=== PATIENT | female | born 1960 | race Caucasian/White ===

== ENCOUNTER → 2017-10-04 | Outpatient (CLI) | payer BC ==
--- NOTE | 2017-10-04 15:44 | RAD ---
Renal ultrasound, 10/04/2017: History: Hematuria The right kidney measures 10.9 cm in length while the left kidney measures 12.0 cm. There is a mildly prominent extrarenal pelvis on the right. There is no evidence of hydronephrosis or a renal mass. Limited views of urinary bladder are unremarkable. The prevoiding volume was 344 cc. A post voiding view demonstrates approximately 10 cc of residual urine. IMPRESSION: No significant renal abnormality is detected.
== END | disposition home or self-care (01) ==
LOC: US 14:09
PROVIDERS: ATTEND Physician Assistant
DX: R31.29 Other microscopic hematuria (principal)
CPT/HCPCS: 76770

== ENCOUNTER 2019-04-25 14:14 | Emergency (ER) | payer BC ==
[~2019-04-25] VITALS: Ht 170.2 cm; Wt 54.4 kg
[2019-04-25 14:14] VITALS: BP 143/89
[2019-04-25] MEDS ORDERED: TRAM50TA PO (14:42)
[2019-04-25] MEDS ORDERED: SULF1TAB24 PO (14:42)
[2019-04-25] MEDS ORDERED: COLC0.6T34 PO (14:42)
--- NOTE | 2019-04-25 14:43 | PHYS DOC ---
Past History Past Medical History: CAD, High Cholesterol, Hypertension, Other Additional Past Medical Histor: lupus Past Surgical History: No Surgical History Smoking: Non-smoker Alcohol Use: Rarely Drug Use: None Adult General Chief Complaint Chief Complaint: KNEE INJURY HPI HPI Patient is a 58-year-old female presents complaining of right knee discomfort, similar to gout that she normally gets in her left knee. This is been present for about the past week. Over the past 2 days she's had some redness in her right foot along with swelling. A blister with yellowish fluid formed on the lateral aspect of her foot that popped. No purulent drainage. No systemic fever. Increased pain with palpation of both the knee and the foot. No trauma. No stepping on a nail. No nausea or vomiting. No new shortness of breath. Patient has recently been diagnosed with lupus and is undergoing an extensive workup at . She currently has an appointment in 2 days with her primary care team for additional lab testing and following on what going on with the lupus.[] Review of Systems Review of Systems Constitutional: Denies fever or chills [] Eyes: Denies change in visual acuity, redness, or eye pain [] HENT: Denies nasal congestion or sore throat [] Respiratory: Denies cough or shortness of breath [] Cardiovascular: No chest pain or palpitations[] GI: Denies abdominal pain, nausea, vomiting, bloody stools or diarrhea [] : Denies dysuria or hematuria [] Musculoskeletal: Denies back pain, see history of present illness[] Integument: See history of present illness[] Neurologic: Denies headache, focal weakness or sensory changes [] Endocrine: Denies polyuria or polydipsia [] All other systems were reviewed and found to be within normal limits, except as documented in this note. Allergies Allergies Allergies Coded Allergies Type Severity Reaction Last Updated Verified No Known Drug Allergies 11/21/13 No Physical Exam Physical Exam Constitutional: Well developed, well nourished, no acute distress, non-toxic appearance. [] HENT: Normocephalic, atraumatic, bilateral external ears normal, oropharynx moist, no oral exudates, nose normal. [] Eyes: PERRLA, EOMI, conjunctiva normal, no discharge. [] Neck: Normal range of motion, no tenderness, supple, no stridor. [] Cardiovascular:Heart rate regular rhythm, no murmur [] Lungs & Thorax: Bilateral breath sounds clear to auscultation [] Abdomen: Not examined. [] Skin: Warm, dry, see below in the extremity section for additional details. [] Back: No tenderness, no CVA tenderness. [] Extremities: Right knee has some edema prepatellar, some skin changes, no uremic marrero, full active range of motion, no laxity. A joint above and joined below were evaluated and were normal. Right foot has erythema diffusely in the forefoot. There is a popped blister approximately 1 cm in diameter lateral aspect of her foot, distal metatarsal region. No significant cracking between the toes. No ankle tenderness. Right hip was normal. The other 3 extremities were examined and reveal: No tenderness, no cyanosis, no clubbing, ROM intact, no edema. [] Neurologic: Alert and oriented X 3, normal motor function, normal sensory function, no focal deficits noted. [] Psychologic: Affect normal, judgement normal, mood normal. [] EKG EKG [] Radiology/Procedures Radiology/Procedures [] Course & Med Decision Making Course & Med Decision Making Pertinent Labs and Imaging studies reviewed. (See chart for details) ED course and medical decision making: Patient arrived, was placed in bed, and tolerated exam well. Given her history of previous gout in the left knee, feel at the knee symptoms are most consistent with gout and will start her on short- term medicine to address this. Believe that there is cellulitis in the foot and so we'll address that. Pain medication is limited given that she is on blood thinners. Tetanus status is up-to-date. Additionally this male all be sequela eye of her lupus. There is no evidence of a DVT at this time. No evidence of systemic toxicity.[] Dragon Disclaimer Dragon Disclaimer This electronic medical record was generated, in whole or in part, using a voice recognition dictation system. Departure Departure: Impression: Primary Impression: Gout Additional Impression: Cellulitis Disposition: 01 HOME, SELF-CARE Condition: IMPROVED Referrals: LISA TONEY MD (PCP) Keep your appointment in 2 days Patient Instructions: Cellulitis, Gout Additional Instructions: Follow-up with your regular doctor in 2 days. Apply warm compresses to the affected areas at least 4 times a day for 15 minutes at a time. Drink plenty of water. Heat and dehydration can has gout flareups. Also had 8 ounces of Brooks juice and/or pineapple juice to your diet daily. These can prevent gout flareups. Return to the ER if worsening pain, difficulty breathing, or any other concerns. Scripts Tramadol Hcl (TRAMADOL HCL) 50 Mg Tablet 50 MG PO PRN Q6HRS PRN for PAIN, #20 TAB Prov: DUSTIN RICHEY DO 04/25/19 Sulfamethoxazole/Trimethoprim (BACTRIM DS TABLET) 1 Each Tablet 1 TAB PO BID for cellulitis, #20 TAB Prov: DUSTIN RICHEY DO 04/25/19 Colchicine (COLCRYS) 0.6 Mg Tablet 0.6 MG PO as directed for gout, #3 TAB Take 2 tablets now and then 1 tablet an hour later. Prov: DUSTIN RICHEY DO 04/25/19 Problem Qualifiers Primary Impression: Gout Gout site: knee Gout etiology: unspecified cause Chronicity: acute Laterality: right Qualified Codes: M10.9 - Gout, unspecified Additional Impression: Cellulitis Site of cellulitis: extremity Site of cellulitis of extremity: lower extremity Laterality: right Qualified Codes: L03.115 - Cellulitis of right lower limb DUSTIN RICHEY DO Apr 25, 2019 14:43
== END 2019-04-25 14:50 | disposition home or self-care (01) ==
LOC: ER 14:14
DX: M10.9 Gout, unspecified (principal); L03.115 Cellulitis of right lower limb; I25.10 Atherosclerotic heart disease of native coronary artery without angina pectoris; E78.00 Pure hypercholesterolemia, unspecified; I10 Essential (primary) hypertension
CPT/HCPCS: 99283

== ENCOUNTER → 2020-08-17 | Outpatient (CLI) | payer BC ==
[~2020-08-17] MED LIST: COLC0.6T34 PO; SULF1TAB24 PO; TRAM50TA PO
--- NOTE | 2020-08-17 14:09 | RAD ---
3 views the right foot without comparison for right foot pain. FINDINGS: There is no fracture, dislocation, or acute osseous abnormality identified. Hallux valgus deformity is present. Joints and soft tissues are grossly unremarkable. Vascular calcifications are present. IMPRESSION: 1. No acute osseous abnormality. Electronically signed by: Constantino Santa MD (08/17/2020 2:06 PM) [id number]
== END ==
LOC: DXRAD 10:45
PROVIDERS: ATTEND Podiatrist Foot & Ankle Surgery
DX: M20.11 Hallux valgus (acquired), right foot (principal)
CPT/HCPCS: 73630